=== PATIENT | male | born 1995 | race Caucasian/White ===

== ENCOUNTER 2020-11-25 16:27 | Emergency (ER) | payer OTHER ==
[~2020-11-25] VITALS: Ht 172.7 cm; Wt 86.2 kg
[2020-11-25] MEDS ORDERED: HYDROCODON-ACE1 EA11 PO (17:44)
== END 2020-11-25 17:58 | disposition home or self-care (01) ==
LOC: ED 16:27
DX: S86.111A Strain of other muscle(s) and tendon(s) of posterior muscle group at lower leg level, right leg, initial encounter (principal); X50.9XXA Other and unspecified overexertion or strenuous movements or postures, initial encounter; J45.909 Unspecified asthma, uncomplicated
CPT/HCPCS: 99283

== ENCOUNTER 2024-03-11 02:29 | Emergency (ER) | payer OTHER ==
[~2024-03-11] VITALS: Ht 172.7 cm; Wt 90.0 kg
[~2024-03-11 02:29] MED LIST: HYDROCODON-ACE1 EA11 PO
[2024-03-11] MEDS ORDERED: PENICILLIN G BENZATHINE 1.2 MUNITS/2 ML SYR IM ONE (03:15)
[2024-03-11 03:26] VITALS: BP 133/86
[2024-03-13] MEDS ORDERED: DOXYCYCLINE HY100 MG PO (02:27)
== END 2024-03-11 03:27 | disposition home or self-care (01) ==
LOC: ED 02:29
DX: J02.0 Streptococcal pharyngitis (principal)
CPT/HCPCS: 87651; 96372; 99284-25; J0561

== ENCOUNTER 2024-03-14 01:35 | Observation (INO) | payer OTHER ==
[2024-03-14] VITALS (8 sets, daily range): BP systolic 113–146; BP diastolic 65–84
[~2024-03-14] VITALS: Ht 172.7 cm; Wt 86.3 kg
[~2024-03-14 01:35] MED LIST changes: +DOXYCYCLINE HY100 MG PO
--- OUTSIDE RECORDS SUMMARY | 2024-03-14 01:42 | XMS ---
PreManage Notification: CHRIS BEGUM Security Administrative Hearing Officer Events No recent Security Events currently on file CRITERIA MET - [facility] - 2 Visits in 30 Days CARE PROVIDERS -[facility] Dentist: Manager Location [facility] PHONE: [phone] -, Alissa- Dentist: Manager Location Current [facility] PHONE: [phone] Tanja has no Care Guidelines for this patient. EAleks VISIT COUNT (12 MO.) [address] [place] [address] TOTAL 3 NOTE: Visits indicate total known visits. ED/UCC VISIT TRACKING (12 MO.) 03/14/2024 01:36 [facility] [place] TYPE: Emergency COMPLAINT: - ABSESS BIGGER 03/13/2024 00:45 [facility] [place] TYPE: Emergency COMPLAINT: - BITE UNDER RIGHT ARM 03/11/2024 02:30 [facility] [place] TYPE: Emergency COMPLAINT: - THROAT PROBLEM INPATIENT VISIT TRACKING (12 MO.) No inpatient visits to display in this time frame [id number]
[2024-03-14] MEDS ORDERED: DAPTOmycin 500 MG/10 ML VIAL IV ONE (01:45)
[2024-03-14] MEDS ORDERED: CEFTRIAXONE/SODIUM CHLORIDE 2 GM/100 ML PIGGYBACK IV ONE (01:45)
[2024-03-14] MEDS ORDERED: KETOROLAC TROMETHAMINE 30 MG/ML VIAL IV ONE (02:00)
[2024-03-14] MEDS ORDERED: LACTATED RINGER'S 1,000 ML IV ONE (02:00)
[2024-03-14 02:14] LABS: BASOPHILS 0.2 % (0-2); EOSINOPHILS 1.4 % (0-6); HEMATOCRIT 37.6 % (35.0-50.0); HEMOGLOBIN 13.1 g/dL (12.0-18.0); LYMPHOCYTES 13.5 % (24-44); MCH 30.7 (27-36); MCHC 34.9 g/dl (30-36); MCV 87.9 fl (81-99); MONOCYTES 9.2 % (0-12); NEUTROPHILS 75.7 % (39-80); PLATELET COUNT 276 K/uL (140-440); RBC 4.28 M/ul (4.3-5.7); RDW 12.8 (10.5-15.0)
[2024-03-14 02:38] LABS: ALBUMIN 3.8 g/dL (3.4-5.0); ALBUMIN/GLOBULIN RATIO 0.9 (1.1-2.4); ANION GAP 10.5 (7-21); BILIRUBIN, TOTAL 0.5 ng/dL (0.2-1.0); BUN/CREATININE RATIO 14.13 (6.0-28.6); CALCIUM 9.2 mg/dL (8.5-10.1); CREATININE, SERUM 0.92 mg/dL (0.70-1.30); POTASSIUM 3.5 mmol/L (3.5-5.1)
[2024-03-14 02:43] LABS: LACTIC ACID, BLOOD 0.6 mmol/L (0.4-2.0)
[2024-03-14] MEDS ORDERED: FAMOTIDINE 20 MG/ 2 ML VIAL IV SCH ×2 (02:43→09:00)
[2024-03-14] MEDS ORDERED: ondansetron HCL 4 MG/2 ML VIAL IV PRN ×3 (02:45→18:45)
[2024-03-14] MEDS ORDERED: LACTATED RINGER'S 1,000 ML IV SCH (02:45)
[2024-03-14] MEDS ORDERED: KETOROLAC TROMETHAMINE 30 MG/ML VIAL IV PRN ×2 (02:45→08:45)
[2024-03-14] MEDS ORDERED: MORPHINE SULFATE 10 MG/ML VIAL IV PRN (02:45)
[2024-03-14 02:56] LABS: BILIRUBIN, URINE NEGATIVE (negative); BLOOD/HGB, URINE NEGATIVE (Negative); KETONE, URINE TRACE (Negative); LEUK ESTERASE, URINE NEGATIVE (negative); NITRITE, URINE NEGATIVE (negative)
[2024-03-14 03:12] LABS: AMPHETAMINES, URINE POSITIVE (NEGATIVE); BARBITURATES, URINE NEGATIVE (NEGATIVE); BENZODIAZEPINE, URINE NEGATIVE (NEGATIVE); BUPRENORPHINE, URINE NEGATIVE (NEGATIVE); CANNABINOID, URINE POSITIVE (NEGATIVE); COCAINE, URINE NEGATIVE (NEGATIVE); ECSTASY, URINE POSITIVE (NEGATIVE); FENTANYL, URINE NEGATIVE (NEGATIVE); METHADONE, URINE NEGATIVE (NEGATIVE); OPIATES, URINE NEGATIVE (NEGATIVE); OXYCODONE, URINE NEGATIVE (NEGATIVE); PHENCYCLIDINE, URINE NEGATIVE (NEGATIVE)
[2024-03-14] MEDS ORDERED: CYMBALTA20 MG PO (03:27)
--- NOTE | 2024-03-14 04:00 | NUR ---
PT TO FLOOR VIA WC WITH FLOAT RN. ALERT AND ORIENTED. PT TWITCHY AND ANXIOUS. ABLE TO TRANSPORTS SELF TO BED. REPORT RECEIVED. VS AND WEIGHT OBTAINED. IVF INFUSING PER ORDER. ABSCESS ON RIGHT CHEST WALL COVERED WITH GAUZE. NEW REDNESS OUTLINED. PT REPORTS PAIN 08/26. PT NPO. VERBALIZES UNDERSTANDING. ORAL CARE SUPPLIES PROVIDED. UP TO BR WITH MINIMAL SBA TO VOID. GAIT STEADY. BACK TO BED, ANALI WELL. PT ORIENTED TO ROOM AND NURSE CALL. DENIES QUESTIONS OR CONCERS. S/O TO STAY THE NIGHT. LINENS PROVIDED. NO FURTHER NEEDS. CALL LIGHT IN REACH.
[2024-03-14] MEDS ORDERED: NICOTINE 21 MG/24 HR 1 EA TDSY TD SCH ×2 (04:20→09:00)
--- NOTE | 2024-03-14 05:00 | NUR ---
PT REQUESTING NICOTINE PATCH. BILINGUAL INSTRUCTOR PLACED PATCH ON RIGHT SHOULDER. NO FURTHER NEEDS.
[2024-03-14] MEDS ORDERED: ACETAMINOPHEN 500 MG TAB PO SCH (06:00)
--- NOTE | 2024-03-14 07:29 | NUR ---
PT RESTING EYES CLOSED SNORING, GIRLFRIEND AT BEDSIDE SLEEPING IN RECLINER. PT LEFT UNDISTURBED. ORAL SWABS AND CALL LIGHT IN REACH
--- NOTE | 2024-03-14 08:29 | NUR ---
PATIENT IN BED AT THIS TIME. CALL LIGHT WITHIN REACH, NO FURTHER NEEDS AT THIS TIME.
[2024-03-14] MEDS ORDERED: MEROPENEM 1,000 MG in SODIUM CHLORIDE 0.9% 100 ML IV SCH (08:45)
[2024-03-14] MEDS ORDERED: MEROPENEM 500 MG in SODIUM CHLORIDE 0.9% 100 ML IV SCH (08:48)
--- NOTE | 2024-03-14 08:57 | NUR ---
DR DAMON IN TO SEE PT SURGERY PLAN DISCUSSED AT LENGTH. PT DISLODGED HIS IV APPEARED UNAWARE. PT TO SHOWER THEN IV WILL BE RESTARTED. PT REMAINS NPO DENIES PAIN OR NEED
--- NOTE | 2024-03-14 09:48 | NUR ---
MED REC COMPLETE
--- NOTE | 2024-03-14 09:50 | NUR ---
PT TAKES A SHOWER BED LINENS CHANGED AND IV RESTARTED. PT DENIES QUESTIONS OR CONCERNS R/T SURGICAL PROCEEDURE REPORTS HE HAS HAD HAND SURGERY BEFORE AND IS FAMILIAR WITH PROCESS.
--- NOTE | 2024-03-14 10:20 | NUR ---
UR CLINICAL REVIEW: [facility] [place]- MEETS OBS FOR CELLULITIS EOCCO/MODA OBS 03/14/24 @ 0243 AUTH PENDING CLINICAL REVIEW, SENDING CLINICALS TODAY VIA [place] PLAN TO DC TO HOME WHEN STABLE. 03/15/24
--- NOTE | 2024-03-14 11:27 | NUR ---
PT RESTING EYES CLOSED SIG OTHER RESTING ALSO. CALL LIGHT IS IN REACH
--- NOTE | 2024-03-14 12:17 | NUR ---
PATIENT IS SLEEPING AT THIS TIME. UNABLE TO DISCUSS THE DISCHARGE PLAN AT THIS TIME.THE RADIO INTELLIGENCE OPERATOR WILL RETURN LATER TODAY TO DISCUSS THE STAFFING PLAN.
--- NOTE | 2024-03-14 14:37 | NUR ---
PT RESTING IN BED CONTINUES NPO WAITING TO GO TO E/R. DENIES CONCERNS OR QUESTIONS
--- NOTE | 2024-03-14 16:17 | NUR ---
PT STATES HIS WOUND SITE IS STARTING TO HURT MORE AND FEELS PRESSURE. MEDICATED WITH 2 OF MORPHINE EXPECT SURGERY SOON. PT REPORTS ALMOST IMMEDIATE RELIEF. CONTINUES NPO DENIES NEEDS OF. ORAL SWABS AT BEDSIDE
[2024-03-14] MEDS ORDERED: fentaNYL citrate 100 MCG/2 ML VIAL ONE (17:35)
[2024-03-14] MEDS ORDERED: MIDAZOLAM HCL 2 MG/2 ML VIAL ONE (17:35)
[2024-03-14] MEDS ORDERED: LIDOCAINE HCL 2% 5 ML SDV ONE (17:35)
[2024-03-14] MEDS ORDERED: propofoL 200 MG/20 ML VIAL ONE (17:35)
[2024-03-14] MEDS ORDERED: ondansetron HCL 4 MG/2 ML VIAL ONE (17:35)
--- NOTE | 2024-03-14 17:38 | NUR ---
pt off floor with surgery rn
[2024-03-14] MEDS ORDERED: KETOROLAC TROMETHAMINE 30 MG/ML VIAL ONE (18:12)
--- NOTE | 2024-03-14 18:40 | NUR ---
03/14/24 184 Twila Ovalle 1822- PT PRESENTS TO PACU, SUPINE POSITION, OPA IN PLACE. PT NON REACTIVE TO STIMULUS, MAINTAINING OWN AIRWAY, 6L O2 PER MASK. BREATHING EVEN AND NON LABORED. LR INFUSING TO RW IV. ABD SOFT, NON DISTENDED. DRESSING UNDER RIGHT AXILLA, RIGHT LATERAL CHEST, SMALL AMOUNT OF DRAINGAGE AT POSTERIOR SIDE OF DRESSING. REINFORCED WITH ABD PADS. ALL MONITORS IN PLACE. 183- PT CONTINUES TO SLEEP, NON REACTIVE TO STIMULUS. OPA IN PLACE, BREATHING EVEN AND NON LABORED.
[2024-03-14] MEDS ORDERED: IBLOOD GLUCOSE TEST STRIP 1 EA TEST VI PRN (18:45)
[2024-03-14] MEDS ORDERED: fentaNYL citrate 50 MCG/ML SDV IV PRN (18:45)
[2024-03-14] MEDS ORDERED: droPERidol 5 MG/2 ML VIAL IV PRN (18:45)
[2024-03-14] MEDS ORDERED: HYDROmorphone HCL 1 MG/ML SYR IV PRN (18:45)
[2024-03-14] MEDS ORDERED: PROCHLORPERAZINE EDISYLATE 10 MG/2 ML VIAL IV PRN (18:45)
[2024-03-14] MEDS ORDERED: NALOXONE HCL 0.4 MG SYR IV PRN (18:45)
[2024-03-14] MEDS ORDERED: ACETAMINOPHEN 500 MG TAB PO PRN (19:00)
[2024-03-14] MEDS ORDERED: OXYCODONE/APAP 7.5/325 TAB PO PRN (19:00)
[2024-03-14] MEDS ORDERED: IBUPROFEN 600 MG TAB PO PRN (19:00)
--- NOTE | 2024-03-14 19:04 | NUR ---
PT BACK FROM O/R NOC RN IS PRESENT REPORT GIVEN CARE COORDINATED. DR DAMON IN TO TALK TO PT'S SIG OTHER PRIOR TO HIS ARRIVEAL. PT IS ALERT AND TALKING ANSWERS QUESTIONS APPROPRIATELY.
--- NOTE | 2024-03-14 19:42 | NUR ---
REPORT RECEIVED FROM DAY SHIFT RN. PT BACK FROM PACU AT APPROX 1900. PT ALERT AND ORIENTED. DROWSY. VSS. DENIES PAIN. CPOX PLACED. IVF INFUSING PER ORDER. PT TAKING SIPS OF WATER. DENIES NAUSEA. NO FURTHER NEEDS. CALL LIGHT IN REACH. WHITE BOARD UPDATED.
[2024-03-14] MEDS ORDERED: NICOTINE 21 MG/24 HR 1 EA TDSY TD ONE (20:00)
--- NOTE | 2024-03-14 20:19 | NUR ---
POST OP VS OBTAINED, WNL. NO C/O PAIN OR NAUSEA. JELLO AND PUDDING PROVIDED. IV ABX INFUSING PER ORDER. NO FURTHER NEEDS.
--- NOTE | 2024-03-14 21:08 | NUR ---
pT AWAKE, ALERT AND ORINENTED, NO C/O PAIN, ivf INFSUIGN, POST OP CPOX ON AT BEDSIDE. VISITING WITH FEMALE FRIEND.
--- NOTE | 2024-03-14 21:22 | NUR ---
CLOTH COVERER BROUGHT PT A LUNCH BOX. PT HAS CALL LIGHT
--- NOTE | 2024-03-14 22:40 | NUR ---
POST OP VS OBTAINED, WNL. PT REPORTS RIGHT LATERAL CHEST WALL PAIN 01/24. PRN FOR PAIN ADMIN PER EMAR. DENIES NAUSEA. RIGHT CHEST DRESSING CDI. FRESH WATER PROVIDED. NO FURTHER NEEDS. CALL LIGHT IN REACH.
--- NOTE | 2024-03-14 23:48 | NUR ---
IV ABX COMPLETE. MAINTENANCE FLUIDS RESUMED. PT REPORTS PAIN IMPROVED. WATER PROVIDED. NO FURTHER NEEDS.
--- NOTE | 2024-03-15 00:40 | NUR ---
CPOX ALARMING. ISSUE RESOLVED. PT RESTING WITH EYES CLOSED. HR 80'S. SpO2 MID 90'S.
[2024-03-15 02:10] VITALS: BP 134/58
--- NOTE | 2024-03-15 02:10 | NUR ---
PT RESTING WITH EYES CLOSED. AWAKENS BRIEFLY FOR VS. OBTAINED, WNL. IV ABX INFUSING PER ORDER. S/O RESTING ON COUCH. CALL LIGHT IN REACH.
--- NOTE | 2024-03-15 02:29 | NUR ---
Pt eyes closed, sleeping hard required hard touch to wakeup. voided 400cc clear yellow urine, used urinal. post op CPOX off his requests, IVF infusing. Tolerating liquids well, no c/o n/v. significant other rooming in
[2024-03-15 02:31] VITALS: BP 134/58
--- NOTE | 2024-03-15 04:25 | NUR ---
PT RESTING IN BED WITH EYES CLOSED. RESPIRATIONS EVEN. CALL LIGHT IN REACH.
[2024-03-15 06:18] VITALS: BP 129/74
[2024-03-15 06:40] VITALS: BP 129/74
--- NOTE | 2024-03-15 06:42 | NUR ---
VS AND I&O OBTAINED, WNL. PT REPORTS RIGHT LATERAL CHEST WALL PAIN 03/26. PRN FOR PAIN ADMIN WITH CRACKERS. PT UP TO RECLINER FOR LINEN CHANGE DUE TO DRAINAGE. RIGHT CHEST DRESSING WITH SCANT AMOUNT SEROSANG DRAINAGE. DRESSING REINFORCED WITH ABD PAD. MENU PROVIDED. PT DENIES FURTHER NEEDS. CALL LIGHT IN REACH.
--- NOTE | 2024-03-15 07:40 | NUR ---
PT SLEEPING SOUNDLY AT TIME OF SHIFT REPORT, LEFT UNDISTURBED. FRESH H20 AT BEDSIDE CALL LIGHT IN REACH. IV INFUSING.
--- NOTE | 2024-03-15 08:40 | NUR ---
PT CONTINUES TO REST EYES CLOSED
--- NOTE | 2024-03-15 08:56 | NUR ---
PATIENT IN BED AT THIS TIME. CALL LIGHT WITHIN REACH, NO FURTHER NEEDS AT THIS TIME.
[2024-03-15] MEDS ORDERED: FAMOTIDINE 20 MG TAB PO SCH (09:00)
--- NOTE | 2024-03-15 09:20 | HP ---
[facility] [address] [place], [place] [address] Signed ADMISSION DATE: 03/14/2024 REASON FOR ADMISSION: Right posterolateral chest wall abscess. HISTORY OF PRESENT ILLNESS: This 28-year-old white man was admitted through the emergency room late last night, having been evaluated by Dr. Mehta earlier in the evening yesterday with an abscess in the right lateral chest wall. This was drained and a scant amount of purulence evolve from it. He was discharged with antibiotics, but returned later showing marked enlargement of the area at least 15 [address] in size[address] A CT scan was obtained after consultation with me to assess for intrathoracic manifestations of some infection showing no such finding, but also showing no "abscess." He was admitted for further evaluation and care with broad-spectrum antibiotic coverage. PAST MEDICAL HISTORY: Notable for methamphetamine use, last used yesterday. He denies prior abdominal or thoracic surgery in any way. SOCIAL HISTORY: He is accompanied by a girlfriend. It is notable that he is supposed to appear in court today as well. REVIEW OF SYSTEMS: He denies any fever, chills, or shortness of breath. He has no abdominal pain. PHYSICAL EXAMINATION: GENERAL: Pleasant white man, who looks to be in no acute distress and is not systemically toxic at this time. VITAL SIGNS: Temperature is 98, pulse is 82, and blood pressure 146/75. NECK: Trachea is midline. CHEST: He shows no dyspnea. There is no external wheeze. HEART: Regular. ABDOMEN: Nondistended. EXTREMITIES: Lower extremities show no clubbing, cyanosis, or edema. The torso on the right posterolateral aspect and the posterior axillary fold shows a dense mass locally tender with some disruption of the epidermis related to previous drainage. It is tender and dense and bulky. IMAGING STUDIES: Electronically Signed By: VICTORINO DAMON MD 03/15/24 0920 PATIENT NAME: CHRIS BEGUM HISTORY AND PHYSICAL DATE OF : [birth year] REPORT #: [id number] PHYSICIAN: VICTORINO DAMON MD PCP: SIMRAN CARRERO PA-C REPORT IS CONFIDENTIAL AND NOT TO BE RELEASED WITHOUT AUTHORIZATION [facility] [address] [place], [place] [address] Signed Reviewed including the report as previously noted. The area in question in the posterolateral thorax area shows edema concordant to the area in question, but no well-formed abscess as previously noted. LABORATORY DATA: Lab studies showed white count of 12.7, hematocrit 37.6, and platelets are 276,000. Chem profile is normal. Creatinine 0.92. Liver enzymes normal. Toxicology is positive for methamphetamines and MDMA. Urinalysis is normal. ASSESSMENT AND PLAN: The patient has an infectious process in the right posterolateral chest wall that is concordant to subcutaneous infection of significance. Although, there is not a single well-formed abscess, I do believe this will require operative debridement and drain placement. Some purulence was noted from prior drainage, but reaction to the incision and drainage has been one of markedly increased and worsening of the problem rather than improvement of it. On that basis, I have recommended this afternoon he undergo exam under anesthesia, incision and drainage and breakdown of loculations, which most likely are present in this situation. The risk of bleeding, infection, cosmetic deformity, need for additional treatment, so forth were reviewed with him. He understands and wished to proceed. At present, the patient is currently on antibiotic, daptomycin and ceftriaxone. These medications are reasonable under the circumstances of possibly complex soft tissue infection. MD MIGEL Fink/MODL /[id number] cc: Dr. Tyson Carrero PA-C Electronically Signed By: VICTORINO DAMON MD 03/15/24 0920 PATIENT NAME: CHRIS BEGUM HISTORY AND PHYSICAL DATE OF : [birth year] REPORT #: [id number] PHYSICIAN: VICTORINO DAMON MD PCP: SIMRAN CARRERO PA-C REPORT IS CONFIDENTIAL AND NOT TO BE RELEASED WITHOUT AUTHORIZATION [address] [address] Signed Copies: SIMRAN CARRERO PA-C ~ Electronically Signed By: VICTORINO DAMON MD 03/15/24 0920 PATIENT NAME: CHRIS BEGUM HISTORY AND PHYSICAL DATE OF : [birth year] REPORT #: [id number] PHYSICIAN: VICTORINO DAMON MD PCP: SIMRAN CARRERO PA-C REPORT IS CONFIDENTIAL AND NOT TO BE RELEASED WITHOUT AUTHORIZATION
--- NOTE | 2024-03-15 09:28 | NUR ---
PT AWAKENS FOR MORNING MEAL APPROX 0900 EATS 100% PT STATES HE FEELS WELL, DENIES PAIN AT THIS TIME. ABX INFUSING ORDERED FRESH H20 PROVIDED. PT DENIES FURTHER NEEDS
[2024-03-15 09:45] VITALS: BP 134/81
--- NOTE | 2024-03-15 10:50 | NUR ---
PT SITTING UP IN BED TALKING WITH FAMILY. DC HOME ENERGY CONSULTANT SUPERVISOR IN TO SEE HIM, HE DENIES ANY NEEDS AT THIS TIME
--- NOTE | 2024-03-15 10:58 | NUR ---
SPOKE TO PATIENT ABOUT THE DISCHARGE PLAN. PATIENT PLANS TO GO HOME WITH HIS GIRLFRIEND. PATIENTS DEMOGRAPHICS ARE CORRECT. PATIENT HAS MONEY FOR FOOD,RENT AND UTILITIES, PATIENT DOES NOT USE DME.PATIENT HAS FREINDS AND FAMILY THAT CAN HELP NEEDED. PATIENT WILL FOLLOW MD'S INSTRUCTIOS ON HOW TO TAKE CARE OF DRSG.CHANGES FOR THE RIGHT CHEST ABCESS. THE PATIENT NO NEEDS FOR THE OCCUPATIONAL HEALTH AND SAFETY ADVISER AT THIS TIME.
--- NOTE | 2024-03-15 11:07 | NUR ---
VISITED DURING SPIRITUAL CARE ROUNDS. PT RECEIVING NURSING CARE. DID NOT INTERRUPT. PROVIDED PRAYER.
--- NOTE | 2024-03-15 11:40 | NUR ---
PT RESTING IN BED TALKING WITH FAMILY. URINAL EMPTIED. PT DENIES DISCOMFORT OR NEEDS
--- NOTE | 2024-03-15 12:19 | NUR ---
LUNCH SERVED PT SITTING UP ON THE BED, MOTHER IS PRESENT. DR DAMON IS HERE PT NOTIFIED HE WILL BE IN SOON
[2024-03-15 13:51] VITALS: BP 132/72
--- NOTE | 2024-03-15 14:30 | NUR ---
DR DAMON IN TO SEE PT PULLS PACKING FROM WOUND LEAVING YELLOW DRAIN LOOP ONLY. WOUND CARE DISCUSSED AT LENGTH ALL QUESTIONS ANSWERED. PT DENIES FURTHER QUESTIONS.
[2024-03-15] MEDS ORDERED: IBUPROFEN600 MG PO (14:33)
[2024-03-15] MEDS ORDERED: OXYCODON-ACETA1 EAC2 PO (14:33)
[2024-03-15] MEDS ORDERED: NICOTINE1 EAC2 TD (14:33)
[2024-03-15] MEDS ORDERED: ACETAMINOPHEN500 MG PO (14:33)
--- NOTE | 2024-03-17 11:49 | OR ---
[facility] [address] [place], [place] [address] Signed DATE OF OPERATION: 03/14/2024 SURGEON: Victorino Damon MD PREOPERATIVE DIAGNOSIS: Right posterior axillary fold abscess, greater than 7 cm. POSTOPERATIVE DIAGNOSIS: Right posterior axillary fold abscess, greater than 7 cm. PROCEDURE: Incision and drainage and debridement of right posterior axillary fold abscess. ANESTHESIA: General, LMA; Pablo Jeffries CRNA INDICATIONS FOR THE PROCEDURE: This 28-year-old white man presented to the emergency room yesterday and evaluated by Dr. John Mehta with erythema and painful area of the right posterior axillary fold. He underwent incision and drainage of 3 mL of purulent material by Dr. Mehta. The patient was discharged home, but returned later with marked swelling and the area measured at least 12 cm. Local tenderness was noted. The patient was admitted, given broad-spectrum antibiotics, is now to undergo incision and drainage and debridement of the abscess. A CT scan was performed in the emergency room, which did not describe an abscess per se. Clinical exam clearly shows likely "honeycomb" type abscess and infectious process, for which drainage, debridement, and breakdown of trabeculations would be beneficial. FINDINGS: Indeed the area in question was quite markedly inflamed, edematous, and had purulent material. Cultures were obtained. The trabeculated honeycomb like abscess cavity was broken down and its loculations quite thoroughly and a counter incision made allowing for placement of yellow vessel loop. The area of previous incision and drainage in midportion was debrided as well. DESCRIPTION OF PROCEDURE: The patient was brought to the operating room, given a general LMA type anesthetic. The arm was placed in abduction. The posterior axillary skin fold on the right side and the surrounding area was prepared with a Betadine based solution. The punctate area of Electronically Signed By: VICTORINO DAMON MD 03/17/24 1149 PATIENT NAME: CHRIS BEGUM OPERATIVE REPORT DATE OF : [birth year] REPORT #: [id number] PHYSICIAN: VICTORINO DAMON MD PCP: SIMRAN EDMONDS PA-C REPORT IS CONFIDENTIAL AND NOT TO BE RELEASED WITHOUT AUTHORIZATION [facility] [address] [place], [place] [address] Signed prior incision and drainage was noted. The palpable mass measured approximately 7 cm with erythematous changes at the midportion and less erythema surrounding it. An incision was made rather with a #15 blade on the edge of the process in the medial aspect and the process was interrogated with a hemostat. Loculations were broken down and purulent material obtained. This was Gram stain and cultured. The trabeculations were broken down. Blunt electrocautery and blunt dissection with a hemostat and a counter incision made in the superior aspect posteriorly allowing for placement of a yellow vessel loop. Trabeculations were broken down the central portion with some debridement of skin and necrotic fat. Irrigation was undertaken with a bulb bell ringer, ultimately cleansing the area well. A quarter-inch iodoform gauze was packed into the three puncture sites to affect hemostasis. Gauze was applied as was an ABD and silk tape. He was ultimately extubated and transferred to the recovery room in good condition, having suffered no complication. Sponge, needle, and counts reported as correct. Victorino Damon MD JM/MODL /[id number] cc: Dr. Mehta Copies: ~ Electronically Signed By: VICTORINO DAMON MD 03/17/24 1149 PATIENT NAME: CHRIS BEGUM OPERATIVE REPORT DATE OF : [birth year] REPORT #: [id number] PHYSICIAN: VICTORINO DAMON MD PCP: SIMRAN EDMONDS PA-C REPORT IS CONFIDENTIAL AND NOT TO BE RELEASED WITHOUT AUTHORIZATION
== END 2024-03-15 15:35 | disposition home or self-care (01) ==
LOC: ED 01:35 → MS 01:37
PROVIDERS: Internal Medicine; ADMIT Surgery; ATTEND Surgery
PROC: 0X940ZZ Drainage of Right Axilla, Open Approach (ICD-10-PCS; principal; 2024-03-14 18:00)
DX: L02.411 Cutaneous abscess of right axilla (principal)
CPT/HCPCS: 00300; 36415; 71260; 80053; 80307; 81003; 83605; 85025; 87040; 87070; 87075; 87186; 87205; 96375; 96376; 99284-25; A9270; G0378; J0696; J0878; J1885; J2001; J2185; J2250; J2405; J2704; J3010; J7121; Q9967

== ENCOUNTER 2024-04-23 02:45 | Emergency (ER) | payer OTHER ==
[~2024-04-23] VITALS: Ht 172.7 cm; Wt 88.0 kg
[~2024-04-23 02:45] MED LIST changes: +ACETAMINOPHEN500 MG PO; +CYMBALTA20 MG PO; +IBUPROFEN600 MG PO; +NICOTINE1 EAC2 TD; +OXYCODON-ACETA1 EAC2 PO
[2024-04-23] MEDS ORDERED: DOXYCYCLINE HYCLATE 100 MG HOME.PACK PO ONE (03:30)
[2024-04-23 03:31] VITALS: BP 141/89
== END 2024-04-23 03:32 | disposition home or self-care (01) ==
LOC: ED 02:45
DX: N48.21 Abscess of corpus cavernosum and penis (principal); L08.89 Other specified local infections of the skin and subcutaneous tissue; J45.909 Unspecified asthma, uncomplicated
CPT/HCPCS: 99283; A9270

== ENCOUNTER 2025-02-11 17:33 | Emergency (ER) | payer OTHER ==
[~2025-02-11] VITALS: Ht 172.7 cm; Wt 90.9 kg
[2025-02-11] MEDS ORDERED: AMOX TR-K CLV1 EAC1 PO (18:09)
[2025-02-11] MEDS ORDERED: TETANUS-DIPHTHERIA TOXOIDS/PF 0.5 ML VIAL IM ONE (18:15)
[2025-02-11] MEDS ORDERED: AMOXICILLIN/CLAVULANATE K 875 MG TAB PO ONE (18:15)
[2025-02-11 19:20] VITALS: BP 106/51
== END 2025-02-11 19:20 | disposition home or self-care (01) ==
LOC: ED 17:33
DX: S51.851A Open bite of right forearm, initial encounter (principal); J45.909 Unspecified asthma, uncomplicated; W54.0XXA Bitten by dog, initial encounter
CPT/HCPCS: 73090; 90471; 90714; 99283-25